=== PATIENT | male | born 1940 | race Caucasian/White ===

== ENCOUNTER 2016-11-13 16:54 | Emergency (ER) | payer SELFPAY ==
[~2016-11-13 16:54] MED LIST: 0.9% Sodium Chloride 1,000 ML IV ONE
[2016-11-13 17:00] VITALS: BP 169/123; PULSE 103; RESP 18; O2SAT 100
[2016-11-13] MEDS ORDERED: Propofol Inj 1,000,000 MCG in IV Premix 1 EACH IV SCH ×2 (17:00→17:10)
[2016-11-13] MEDS ORDERED: Propofol 10,000 mCg/mL 100 mL Inj ONE (17:00)
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
--- NOTE | 2016-11-13 17:14 | DRSVH ---
PROCEDURE: X-RAY CHEST ONE VIEW, PORTABLE ([id number]) INDICATIONS: sob TECHNIQUE: One view of the chest was acquired. COMPARISON: 02/21/2006 FINDINGS: Surgical changes and devices: Endotracheal tube is present with tip 7.5 cm above the kevin. Nasogast lul tube is not well seen, tip appearing to be at the gastroesophageal junction Lungs and pleura: No pleural effusions or pneumothorax. Mild atelectasis is present in the left base medially, not effacing the descending aorta. Mediastinum: There is widening of the superior mediastinum at the level of the aortic arch Heart size is normal. Bones and chest wall: No suspicious bony lesions. Overlying soft tissues appear unremarkable. IMPRESSION: 1. Support tubes as indicated. Nasogastric tube could be advanced. 2. Mild left basilar atelectasis medially, otherwise lung is clear. No pneumothorax. Dictated by: Rob Rosario M.D. on 11/13/2016 at 17:07 Approved by: Rob Rosario M.D. on 11/13/2016 at 17:12
[2016-11-13 17:20] LABS: BASOPHILS % (AUTO) 0.4 % (0-3); EOSINOPHILS % (AUTO) 1.7 % (0-5); Mean Corpuscular Hemoglobin 33.2 pg (27.0-35.0); Mean Corpuscular Volume 93.5 fL (81-100); NEUTROPHILS % (AUTO) 77.3 % (40-74); Platelet Count 140 bil/L (150-400)
[2016-11-13 17:42] LABS: Magnesium 1.6 mg/dL (1.6-2.6)
[2016-11-13 17:52] VITALS: BP 165/104; PULSE 109; RESP 16; O2SAT 100
--- NOTE | 2016-11-13 17:53 | DRSVH ---
PROCEDURE: CT BRAIN WITHOUT CONTRAST ([id number]) INDICATIONS: ams TECHNIQUE: Noncontrast 4.5 mm thick angled axial sections acquired from the foramen magnum to the vertex, with c oronal reformats. COMPARISON: [facility], CR, XR CHEST 1VW (PORTABLE), 11/13/2016, 16:57. FINDINGS: Image quality: Excellent. CSF spaces: Basal cisterns are patent. No extra-axial fluid collections. The ventricles are symmet lul in size and shape. Brain: There is a left holohemispheric hyperdense fluid collection which extends into the focus and tentorium measuring 24 mm in greatest transverse dimension. There is a 23 mm right to left midline sh ift. There is cerebral volume loss for age, with resultant ventricular and sulcal prominence. There are periventricular and deep white matter chronic small vessel ischemic changes. There is intracrani al internal carotid artery atherosclerosis. Skull and face: Calvarium and visualized facial bones appear intact, without suspicious lesions. En dotracheal tube is partially visualized. Sinuses: Visualized sinuses demonstrate scattered mucosal thickening and fluid particularly within t he sphenoid and ethmoid sinuses. IMPRESSION: 1. Extensive left holohemispheric subdural hemorrhage with 23 mm right to left midline shift as above . 2. Moderate atrophy and chronic microvascular ischemic changes. The above findings were discussed with Dr. Aj Mo and on 11/13/16 at 5:48 PM. Dictated by: Gladis Greenfield M.D. on 11/13/2016 at 17:48 Approved by: Gladis Greenfield M.D. on 11/13/2016 at 17:51
[2016-11-13] MEDS ORDERED: Phytonadione (Adult) 10 MG in Dextrose 5%-Pha MIX 50 ML IV ONE (17:55)
--- NOTE | 2016-11-13 17:56 | ABG ---
DateTimeAnalyzed 17:49:00 -_ pH ____7.317 - 7.350 7.450 pCO2 ___43.4__ -mmHg 35.0 45.0 pO2 124 -mmHg 69.0 116 HCO3- ___21.5__ -mmol/L 22.0 26.0 ABE ___-3.9__ -mmol/L -2.0 2.0 tHb ___12.1__ -g/dL 12.0 18.0 O2Hb ___96.8__ -% COHb ____0.7__ -% 0.0 1.5 MetHb ____0.8__ -% 0.4 1.5 sO2 ___98.3__ -% 25.0 FIO2 ___50.0__ -% Drawn By RS - Date/Time Notified____ 17:56:00 -_ Notified By rs - Notified Whom ANDELIN, BRIAN - B 758 -mmHg tO2 ___16.7__ -Vol%
[2016-11-13 17:58] VITALS: BP 166/88; PULSE 95; RESP 18; O2SAT 100
[2016-11-13] MEDS ORDERED: KLO5T PO (17:58)
[2016-11-13] MEDS ORDERED: DILT180C81 PO (17:58)
[2016-11-13] MEDS ORDERED: LISI2.5T PO (17:58)
[2016-11-13] MEDS ORDERED: LEVO100T6 PO (17:58)
[2016-11-13] MEDS ORDERED: SIMV40TA5 PO (17:58)
[2016-11-13] MEDS ORDERED: WARF5TAB7 PO (17:58)
[2016-11-13 18:02] LABS: APPEARANCE,URINE CLEAR (CLEAR,HAZY); COLOR,URINE YELLOW (YELLOW); OCCULT BLOOD,URINE SMALL (NEGATIVE); PH,URINE 5.5 (5.0-8.0); UROBILINOGEN,URINE NORMAL (NORMAL)
[2016-11-13 18:10] LABS: INR 4.63 ratio
[2016-11-13 18:13] VITALS: O2SAT 100
[2016-11-13 18:24] VITALS: BP 168/86; PULSE 95; RESP 18; O2SAT 100
[2016-11-13] MEDS ORDERED: PROTHROMBIN COMPLEX IV ONE (18:25)
[2016-11-13] MEDS ORDERED: Labetalol 5 mg/mL 20 mL Inj IVPUSH ONE (18:25)
[2016-11-13] MEDS ORDERED: MANNITOL 20% IV ONE (18:30)
== END 2016-11-13 18:53 | disposition short-term general hospital (02) ==
LOC: SED 16:54
DX: S06.5X9A Traumatic subdural hemorrhage with loss of consciousness of unspecified duration, initial encounter (principal); G93.89 Other specified disorders of brain; R79.1 Abnormal coagulation profile; I10 Essential (primary) hypertension; R00.0 Tachycardia, unspecified; V48.5XXA Car driver injured in noncollision transport accident in traffic accident, initial encounter; Y93.89 Activity, other specified; Y99.8 Other external cause status; Y92.410 Unspecified street and highway as the place of occurrence of the external cause; I48.91 Unspecified atrial fibrillation; Z86.73 Personal history of transient ischemic attack (TIA), and cerebral infarction without residual deficits; Z79.01 Long term (current) use of anticoagulants
CPT/HCPCS: 36415; 36620; 51702; 70450; 71010; 80053; 81000; 82140; 82375; 82803; 82948; 83605; 83735; 85025; 85610; 85730; 93005; 94002; 94799; 96374; 96375; 99291; C9132; G0480; J3430